=== PATIENT | female | born 1985 | race Caucasian/White ===

== ENCOUNTER 2016-09-11 15:17 | Inpatient (IN) | payer BC ==
[~2016-09-11] VITALS: Ht 162.6 cm; Wt 76.5 kg
[~2016-09-11 15:17] MED LIST: MOTRIN 800800 MG/TAB PO; NATURE S BLEND PO; PERCOCET 325 MG1 TA2 PO; PRENATAL1 TA1 PO
[2016-09-26] VITALS (47 sets, daily range): BP systolic 95–143; BP diastolic 51–80; PULSE 71–104; TEMP 89.6–98.6
[2016-09-26] MEDS ORDERED: FERROUS SULFATE65 MG PO (07:33)
[2016-09-26 07:57] LABS: BASO % 0.3 % (0.0-2.0); EOS # 0.1 (0.0-0.7); EOS % 0.6 % (0-4.0); GRAN # 7.2 (1.4-6.5); GRAN % 76.2 % (42.2-75.2); LYMPH # 1.1 (1.2-3.4); LYMPH % 11.5 % (20.0-51.0); MEAN CELL VOLUME 92 fl (80.0-100.0); MEAN CORPUSCULAR HGB CONC 34 g/dl (33.0-37.0); MEAN PLATELET VOLUME 9.9 fl (7.4-10.4); MONO # 0.9 (0.1-0.6); MONO % 9.3 % (1.7-9.3); PLATELET COUNT 157 K/mm3 (130-400); RED BLOOD COUNT 3.74 M/mm3 (4.10-5.30); REDCELL DISTRIBUTION WIDTH-CV 13.6 % (11.5-14.5); WHITE BLOOD COUNT 9.4 K/mm3 (4.8-10.8)
[2016-09-26 08:05] LABS: HEMATOCRIT 34.4 % (37.0-47.0); HEMOGLOBIN 11.8 g/dl (12.5-16.0); MEAN CORPUSCULAR HEMOGLOBIN 32 pg (27.0-31.0)
[2016-09-26 13:18] LABS: ADD PATHOLOGY DIFF REVIEW NO
[2016-09-26 13:20] LABS: BAND 10 % (0-10); EOSINOPHIL 1 % (0-4); NEUTROPHILS 70 % (42.0-75.2); PLATELET ESTIMATE NORMAL (NORMAL); TOTAL CELLS COUNTED 100
[2016-09-27 03:45] VITALS: BP 118/69; PULSE 78; TEMP 98.2
[2016-09-27 07:44] VITALS: BP 111/76; PULSE 85; TEMP 97.9
[2016-09-27 07:55] LABS: BASO % 0.3 % (0.0-2.0); EOS # 0.1 (0.0-0.7); EOS % 0.5 % (0-4.0); GRAN # 8.9 (1.4-6.5); GRAN % 79.4 % (42.2-75.2); LYMPH # 1.1 (1.2-3.4); LYMPH % 10.1 % (20.0-51.0); MEAN CELL VOLUME 92 fl (80.0-100.0); MEAN CORPUSCULAR HGB CONC 34 g/dl (33.0-37.0); MEAN PLATELET VOLUME 9.8 fl (7.4-10.4); MONO # 0.9 (0.1-0.6); MONO % 7.9 % (1.7-9.3); PLATELET COUNT 146 K/mm3 (130-400); RED BLOOD COUNT 3.48 M/mm3 (4.10-5.30); REDCELL DISTRIBUTION WIDTH-CV 13.5 % (11.5-14.5); WHITE BLOOD COUNT 11.2 K/mm3 (4.8-10.8)
[2016-09-27 08:13] LABS: HEMATOCRIT 32.1 % (37.0-47.0); HEMOGLOBIN 10.9 g/dl (12.5-16.0); MEAN CORPUSCULAR HEMOGLOBIN 31 pg (27.0-31.0)
[2016-09-27 09:06] LABS: ADD PATHOLOGY DIFF REVIEW NO
[2016-09-27 12:02] VITALS: BP 111/73; PULSE 77; TEMP 97.8
[2016-09-27 13:21] LABS: BAND 11 % (0-10); NEUTROPHILS 73 % (42.0-75.2); PLATELET ESTIMATE NORMAL (NORMAL); TOTAL CELLS COUNTED 100
[2016-09-27 15:06] VITALS: BP 110/65; PULSE 76; TEMP 98.1
[2016-09-27 21:00] VITALS: BP 105/71; PULSE 75; TEMP 97.7
[2016-09-28 07:08] VITALS: BP 111/73; PULSE 69; TEMP 97.5
[2016-09-28] MEDS ORDERED: PERCOCET 325 MG1 TA2 PO (12:55)
[2016-09-28] MEDS ORDERED: IBU800 M1 PO (12:55)
[2016-09-28 15:47] VITALS: BP 113/58; PULSE 75; TEMP 97.7
== END 2016-09-28 16:20 | disposition home or self-care (01) | DRG 775 ==
LOC: OB 09-26 06:56 → LDR 09-26 06:56 → OB 09-26 17:45 → LDR 10-10 08:47 → EDSTATUS 10-10 08:47 → LDRO 10-10 15:16
PROVIDERS: Student in an Organized Health Care Education/Training Program
PROC: 10E0XZZ Delivery of Products of Conception, External Approach (ICD-10-PCS; principal; 2016-09-26)
PROC: 0UQMXZZ Repair Vulva, External Approach (ICD-10-PCS; 2016-09-26)
PROC: 3E033VJ Introduction of Other Hormone into Peripheral Vein, Percutaneous Approach (ICD-10-PCS; 2016-09-26)
PROC: 0HQ9XZZ Repair Perineum Skin, External Approach (ICD-10-PCS; 2016-09-26)
DX: O30.043 Twin pregnancy, dichorionic/diamniotic, third trimester (principal); O99.824 Streptococcus B carrier state complicating childbirth; O70.0 First degree perineal laceration during delivery; O71.82 Other specified trauma to perineum and vulva; O99.013 Anemia complicating pregnancy, third trimester; D64.9 Anemia, unspecified; Z3A.38 38 weeks gestation of pregnancy; Z37.2 Twins, both liveborn
CPT/HCPCS: J2590; J7120